=== PATIENT | female | born 1970 | race Caucasian/White ===

== ENCOUNTER 2021-10-19 15:16 | Outpatient (CLI) | payer BC, OTHER | END 2021-10-19 15:17 | disposition home or self-care (01) | LOC: CTENTCT 15:16 | PROVIDERS: ATTEND Otolaryngology Plastic Surgery within the Head & Neck | DX: J32.9 Chronic sinusitis, unspecified (principal) | CPT/HCPCS: 70486 ==

== ENCOUNTER 2021-10-21 07:09 | Outpatient (CLI) | payer BC ==
[2021-10-21 22:39] LABS: SARS-CoV-2 PCR by NAA Not Detected (NotDetected)
== END 2021-10-21 07:10 | disposition home or self-care (01) ==
LOC: LABBT 07:09
PROVIDERS: ATTEND Otolaryngology Plastic Surgery within the Head & Neck
DX: Z01.818 Encounter for other preprocedural examination (principal); Z20.822 Contact with and (suspected) exposure to COVID-19
CPT/HCPCS: 85014; 93005; 93010; U0003; U0005

== ENCOUNTER 2021-10-25 09:47 | Day surgery (SDC) | payer BC ==
[2021-10-20 14:47] VITALS: BMI 23.3
[2021-10-25] MEDS ORDERED: Fentanyl 100 MCG/2 ML VIAL ONE ×4 (10:09→12:40)
[2021-10-25] MEDS ORDERED: Dexmedetomidine 200 MCG/2 ML VIAL ONE (10:09)
[2021-10-25] MEDS ORDERED: Oxymetazoline HCl 0.05% (30 ML BOT) ONE (10:23)
[2021-10-25] MEDS ORDERED: Midazolam HCl 2 mg/2 ml Vial ONE (11:00)
[2021-10-25] MEDS ORDERED: Acetaminophen 500 MG TAB ONE (11:00)
[2021-10-25] MEDS ORDERED: Promethazine 25 MG TAB ONE (13:48)
[2021-10-25] MEDS ORDERED: Hydrocodone-Acetamin 15 ML UDCUP ONE (13:48)
== END 2021-10-25 14:30 | disposition home or self-care (01) ==
LOC: SDC 09:47
PROVIDERS: ATTEND Otolaryngology Plastic Surgery within the Head & Neck
PROC: 099S8ZZ Drainage of Right Frontal Sinus, Via Natural or Artificial Opening Endoscopic (ICD-10-PCS; principal; 2021-10-25)
PROC: 09TU8ZZ Resection of Right Ethmoid Sinus, Via Natural or Artificial Opening Endoscopic (ICD-10-PCS; principal; 2021-10-25)
PROC: 09TL7ZZ Resection of Nasal Turbinate, Via Natural or Artificial Opening (ICD-10-PCS; principal; 2021-10-25)
PROC: 099Q8ZZ Drainage of Right Maxillary Sinus, Via Natural or Artificial Opening Endoscopic (ICD-10-PCS; principal; 2021-10-25)
PROC: 099R8ZZ Drainage of Left Maxillary Sinus, Via Natural or Artificial Opening Endoscopic (ICD-10-PCS; principal; 2021-10-25)
PROC: 099T8ZZ Drainage of Left Frontal Sinus, Via Natural or Artificial Opening Endoscopic (ICD-10-PCS; principal; 2021-10-25)
PROC: 09TV8ZZ Resection of Left Ethmoid Sinus, Via Natural or Artificial Opening Endoscopic (ICD-10-PCS; principal; 2021-10-25)
DX: J32.8 Other chronic sinusitis (principal); J34.3 Hypertrophy of nasal turbinates; J34.89 Other specified disorders of nose and nasal sinuses; H69.80 Other specified disorders of Eustachian tube, unspecified ear; H90.6 Mixed conductive and sensorineural hearing loss, bilateral; H93.13 Tinnitus, bilateral; F17.210 Nicotine dependence, cigarettes, uncomplicated; G43.909 Migraine, unspecified, not intractable, without status migrainosus; Z79.899 Other long term (current) drug therapy
CPT/HCPCS: 87070; 87205; J2250; J3010; Q0169